=== PATIENT | male | born 1955 | race Caucasian/White ===

== ENCOUNTER → 2023-05-25 14:27 | Outpatient (REF) | payer OTHER, SELFPAY | LOC: DHCBC MAIN 14:27 | PROVIDERS: ATTENDING PHYSICIAN Internal Medicine Cardiovascular Disease; FAMILY PHYSICIAN Physician Assistant Medical | DX: I48.19 Other persistent atrial fibrillation (principal) | CPT/HCPCS: 93306 ==

== ENCOUNTER → 2024-07-24 13:28 | Outpatient (REF) | payer OTHER, SELFPAY | LOC: RCS 13:28 | PROVIDERS: ATTENDING PHYSICIAN Internal Medicine Cardiovascular Disease; FAMILY PHYSICIAN Physician Assistant Medical | DX: I34.0 Nonrheumatic mitral (valve) insufficiency (principal) | CPT/HCPCS: 93306 ==

== ENCOUNTER → 2024-08-03 12:34 | Outpatient (REF) | payer OTHER, SELFPAY ==
--- NOTE | 2024-08-03 14:42 | CARDSERVDEF ---
Echocardiogram with Definity completed after protocol screening completed. Allergies verified.
Patent IV site: _Left antecubital 22 G PC____
IV site flushed with 0.9% NaCl pre and post administration.
Diluted bolus method utilized to enhance visualization of ventricular pickens.
Total volume given: _3___ mL
Patient tolerated all procedures well without complications.
Heplock D/C ed at 1440, site clear, no redness, no edema. Pressure held for few minutes as pt on anticoagulants, no bleeding. 2x2 applied and taped. Pt offers no complaints.
== END ==
LOC: RCS 12:34
PROVIDERS: ATTENDING PHYSICIAN Internal Medicine Cardiovascular Disease; FAMILY PHYSICIAN Physician Assistant Medical
DX: R07.2 Precordial pain (principal)
CPT/HCPCS: 93017; 93350

== ENCOUNTER 2024-11-02 06:25 | Day surgery (SDC) | payer OTHER, SELFPAY | END 2024-11-02 10:17 | disposition home or self-care (01) | LOC: GI 06:25 | PROVIDERS: ATTENDING PHYSICIAN Internal Medicine Gastroenterology | DX: K22.2 Esophageal obstruction (principal); K44.9 Diaphragmatic hernia without obstruction or gangrene; R13.10 Dysphagia, unspecified; Z80.0 Family history of malignant neoplasm of digestive organs | CPT/HCPCS: 43235 ==

== ENCOUNTER → 2025-01-24 13:06 | Outpatient (REF) | payer OTHER, SELFPAY | LOC: RCS 13:06 | PROVIDERS: ATTENDING PHYSICIAN Internal Medicine Cardiovascular Disease; FAMILY PHYSICIAN Physician Assistant Medical | DX: I34.0 Nonrheumatic mitral (valve) insufficiency (principal) | CPT/HCPCS: 93306 ==